=== PATIENT | male | born 1970 | race Caucasian/White ===

== ENCOUNTER 2021-07-27 10:42 | Day surgery (SDC) | payer OTHER ==
[~2021-07-27] VITALS: Ht 175.3 cm; Wt 83.3 kg
[~2021-07-27 10:42] MED LIST: Norco 5-325 Ta1 EACH PO
[2021-07-27] MEDS ORDERED: LAMICTAL XR300 MG PO (11:31)
[2021-07-27] MEDS ORDERED: BRIVIACT100 MG PO (11:33)
[2021-07-27] MEDS ORDERED: Seroquel Xr50 MG PO (11:34)
--- NOTE | 2021-07-27 11:40 | NUR ---
07/27/21 1140 Ciera Parham TETRACAINE PLACED TO RIGHT EYE @1135. PLEDGIT PLACED TO RIGHT EYE @ 1140. PT TOLERATED WELL. CALL LIGHT IN REACH.
== END 2021-07-27 13:20 | disposition home or self-care (01) ==
LOC: ORSCSDS 10:42
PROVIDERS: Ophthalmology
PROC: 08RJ3JZ Replacement of Right Lens with Synthetic Substitute, Percutaneous Approach (ICD-10-PCS; principal; 2021-07-27 12:30)
DX: H25.11 Age-related nuclear cataract, right eye (principal); G47.33 Obstructive sleep apnea (adult) (pediatric); Z79.899 Other long term (current) drug therapy
CPT/HCPCS: J2001; J2250; J3010; J3301; J7040; V2632

== ENCOUNTER → 2025-03-05 | Outpatient (CLI) | payer OTHER ==
[~2025-03-05] MED LIST changes: +BRIVIACT100 MG PO; +LAMICTAL XR300 MG PO; +Seroquel Xr50 MG PO
[2025-03-06 10:25] LABS: Stool Occult Bld Immuno 1 Negative (NEGATIVE)
== END ==
LOC: LAB 17:40 → LAB SHORT 17:40
PROVIDERS: Family Medicine
DX: Z12.11 Encounter for screening for malignant neoplasm of colon (principal); Z12.12 Encounter for screening for malignant neoplasm of rectum
CPT/HCPCS: G0328